=== PATIENT | female | born 1990 | race Two or more races ===

== ENCOUNTER 2018-03-07 14:28 | Emergency (ER) | payer SELFPAY ==
[~2018-03-07] VITALS: Ht 167.6 cm; Wt 102.1 kg
[2018-03-07 14:43] VITALS: BP 131/80
[2018-03-07] MEDS ORDERED: methylPREDNISolone SOD SUCC 125 MG/2 ML VL IM ONE (15:45)
[2018-03-07] MEDS ORDERED: diphenhdrAMINE HCL 25 MG CAP PO ONE (15:45)
== END 2018-03-07 16:08 | disposition home or self-care (01) ==
LOC: ER 14:28
DX: T78.40XA Allergy, unspecified, initial encounter (principal)
CPT/HCPCS: 96372; 99283; J2930

== ENCOUNTER 2020-02-11 20:22 | Emergency (ER) | payer MEDICAID ==
[~2020-02-11] VITALS: Ht 165.1 cm; Wt 99.8 kg
[2020-02-11 22:14] VITALS: BP 149/89
[2020-02-11] MEDS ORDERED: KETOROLAC TROMETH 60MG/2ML VIAL IM ONE (22:30)
== END 2020-02-11 23:00 | disposition home or self-care (01) ==
LOC: ER 20:22
DX: S05.12XA Contusion of eyeball and orbital tissues, left eye, initial encounter (principal); W10.8XXA Fall (on) (from) other stairs and steps, initial encounter; Y93.89 Activity, other specified; Y92.59 Other trade areas as the place of occurrence of the external cause; Y99.8 Other external cause status
CPT/HCPCS: 70450; 70486; 72125; 96372; 99285; J1885; 90471

== ENCOUNTER 2020-11-25 19:44 | Emergency (ER) | payer MEDICAID ==
[~2020-11-25] VITALS: Ht 167.6 cm; Wt 81.6 kg
[2020-11-25] MEDS ORDERED: ACETAMINOPHEN 325 MG TAB PO ONE (21:00)
[2020-11-25 21:15] LABS: Urine Bacteria FEW /hpf (None Seen); Urine Blood Negative /uL (Negative); Urine Mucus FEW (None Seen); Urine Specific Gravity 1.024 (1.001-1.035); Urine WBC 5 /hpf (0 - 5)
[2020-11-25] MEDS ORDERED: KETOROLAC TROMETH 60MG/2ML VIAL IM ONE (23:45)
[2020-11-25] MEDS ORDERED: cefTRIAXone SOD 1,000 MG VL IM ONE (23:45)
[2020-11-26] VITALS: BP 131/92
== END 2020-11-26 01:01 | disposition home or self-care (01) ==
LOC: ER 19:51
DX: N39.0 Urinary tract infection, site not specified (principal); M51.26 Other intervertebral disc displacement, lumbar region; M48.061 Spinal stenosis, lumbar region without neurogenic claudication; F17.210 Nicotine dependence, cigarettes, uncomplicated; Z98.890 Other specified postprocedural states
CPT/HCPCS: 72131; 81001; 81025; 96372; 99284; J0696; J1885

== ENCOUNTER 2021-04-14 05:57 | Emergency (ER) | payer MEDICAID ==
[~2021-04-14] VITALS: Ht 165.1 cm; Wt 95.3 kg
[2021-04-14 06:00] VITALS: BP 136/78
== END 2021-04-14 09:04 | disposition left against medical advice (07) ==
LOC: ER 05:57
DX: S70.361A Insect bite (nonvenomous), right thigh, initial encounter (principal); F17.210 Nicotine dependence, cigarettes, uncomplicated; W57.XXXA Bitten or stung by nonvenomous insect and other nonvenomous arthropods, initial encounter; Y93.89 Activity, other specified; Y92.89 Other specified places as the place of occurrence of the external cause; Y99.8 Other external cause status

== ENCOUNTER 2022-07-20 03:41 | Emergency (ER) | payer MEDICAID ==
[~2022-07-20] VITALS: Ht 160 cm; Wt 85.0 kg
[2022-07-20 08:44] VITALS: BP 150/92
== END 2022-07-20 08:27 | disposition left against medical advice (07) ==
LOC: ER 03:41
DX: R51.9 Headache, unspecified (principal); Z53.21 Procedure and treatment not carried out due to patient leaving prior to being seen by health care provider

== ENCOUNTER 2022-10-06 00:05 | Emergency (ER) | payer MEDICAID | END 2022-10-06 00:14 | disposition left against medical advice (07) | LOC: ER 00:05 | DX: R22.40 Localized swelling, mass and lump, unspecified lower limb (principal); Z53.21 Procedure and treatment not carried out due to patient leaving prior to being seen by health care provider ==

== ENCOUNTER 2022-12-29 23:31 | Emergency (ER) | payer MEDICAID | END 2022-12-29 23:36 | disposition left against medical advice (07) | LOC: ER 23:31 | DX: M54.9 Dorsalgia, unspecified (principal); Z53.21 Procedure and treatment not carried out due to patient leaving prior to being seen by health care provider ==

== ENCOUNTER 2022-12-31 04:23 | Emergency (ER) | payer MEDICAID | END 2022-12-31 05:19 | disposition left against medical advice (07) | LOC: ER 04:23 | DX: M54.9 Dorsalgia, unspecified (principal); Z53.21 Procedure and treatment not carried out due to patient leaving prior to being seen by health care provider ==

== ENCOUNTER → 2023-01-22 | Emergency (ER) | payer MEDICAID | END | disposition left against medical advice (07) | LOC: ER 03:38 | DX: R06.02 Shortness of breath (principal); Z53.21 Procedure and treatment not carried out due to patient leaving prior to being seen by health care provider ==

== ENCOUNTER 2023-02-02 08:25 | Emergency (ER) | payer MEDICAID ==
[~2023-02-02] VITALS: Ht 165.1 cm; Wt 95.4 kg
[2023-02-02 14:29] VITALS: BP 111/56; PULSE 66; RESP 16; TEMP 97.6; O2SAT 99
[2023-02-02] MEDS ORDERED: NITR-87 PO (15:40)
== END 2023-02-02 15:46 | disposition home or self-care (01) ==
LOC: ER 08:25
DX: N39.0 Urinary tract infection, site not specified (principal); F17.210 Nicotine dependence, cigarettes, uncomplicated

== ENCOUNTER 2023-02-06 01:06 | Emergency (ER) | payer MEDICAID ==
[~2023-02-06] VITALS: Ht 154.9 cm; Wt 85.1 kg
[~2023-02-06 01:06] MED LIST: NITR-87 PO
[2023-02-06 01:22] VITALS: BP 116/67; PULSE 77; RESP 17; TEMP 97.7; O2SAT 99
[2023-02-06] MEDS ORDERED: IBUP-1455 PO (03:25)
[2023-02-06] MEDS ORDERED: IBUPROFEN 800 MG TAB PO ONE (03:30)
== END 2023-02-06 03:35 | disposition home or self-care (01) ==
LOC: ER 01:07
DX: M25.562 Pain in left knee (principal); F17.210 Nicotine dependence, cigarettes, uncomplicated; Z98.890 Other specified postprocedural states
CPT/HCPCS: 73562

== ENCOUNTER 2023-02-19 23:13 | Emergency (ER) | payer MEDICAID ==
[~2023-02-19 23:13] MED LIST changes: +IBUP-1455 PO
== END 2023-02-20 00:33 | disposition left against medical advice (07) ==
LOC: ER 23:19
DX: M25.569 Pain in unspecified knee (principal); Z53.21 Procedure and treatment not carried out due to patient leaving prior to being seen by health care provider

== ENCOUNTER 2023-02-20 12:41 | Emergency (ER) | payer MEDICAID ==
[~2023-02-20] VITALS: Ht 162.6 cm; Wt 91.8 kg
[2023-02-20 13:00] VITALS: BP 146/78; PULSE 88; RESP 18; O2SAT 99
[2023-02-20] MEDS ORDERED: KETOROLAC TROMETH 60MG/2ML VIAL IM ONE (13:00)
[2023-02-20] MEDS ORDERED: DexAMETHasone SOD PHOS 10MG/1ML VIAL INJ IM ONE (13:00)
[2023-02-20 17:55] LABS: Urine Bacteria NONE SEEN /hpf (None Seen); Urine Blood Negative /uL (Negative); Urine Clarity Clear (Clear); Urine Color Yellow (Yellow); Urine Protein, UAD 3+ (Negative); Urine Specific Gravity 1.012 (1.001-1.035); Urine Urobilinogen Normal (Negative); Urine WBC 4 /hpf (0 - 5)
[2023-02-20 18:06] LABS: Amphetamine Screen, Urine Neg (NEGATIVE); Barbiturate Scree,Urine Neg (NEGATIVE); Benzodiazephine Screen, Urine Neg (NEGATIVE); Cannabinoid Screen, Urine Neg (NEGATIVE); Cocaine Screen, Urine Neg (NEGATIVE); Opiate Scree,Urine Neg (NEGATIVE); Phencyclidine Screen, Urine Neg (NEGATIVE)
== END 2023-02-20 17:29 | disposition home or self-care (01) ==
LOC: ER 12:41
DX: L30.8 Other specified dermatitis (principal); M25.562 Pain in left knee; F17.210 Nicotine dependence, cigarettes, uncomplicated; Z79.899 Other long term (current) drug therapy; W18.09XA Striking against other object with subsequent fall, initial encounter; Y93.01 Activity, walking, marching and hiking; Y92.89 Other specified places as the place of occurrence of the external cause; Y99.8 Other external cause status
CPT/HCPCS: 80307; 81001; 81025; 96372; 99284; J1100; J1885

== ENCOUNTER 2023-02-22 07:19 | Emergency (ER) | payer MEDICAID ==
[~2023-02-22] VITALS: Ht 165.1 cm; Wt 85.7 kg
[2023-02-22 08:10] VITALS: BP 127/58; PULSE 89; RESP 16; TEMP 96.1; O2SAT 96
[2023-02-22] MEDS ORDERED: METH4PAK PO (09:02)
[2023-02-22] MEDS ORDERED: HYDR-3682 PO ×3 (09:02→10:31)
[2023-02-22] MEDS ORDERED: IBUP-1455 PO (10:31)
== END 2023-02-22 09:02 | disposition home or self-care (01) ==
LOC: ER 07:19
DX: L29.9 Pruritus, unspecified (principal); F17.200 Nicotine dependence, unspecified, uncomplicated

== ENCOUNTER 2023-03-17 21:41 | Emergency (ER) | payer MEDICAID ==
[~2023-03-17] VITALS: Ht 165.1 cm; Wt 91.9 kg
[~2023-03-17 21:41] MED LIST changes: +HYDR-3682 PO; +METH4PAK PO
[2023-03-18 06:12] VITALS: BP 122/84; PULSE 66; RESP 16; TEMP 98
[2023-03-18 06:51] VITALS: O2SAT 98
[2023-03-18] MEDS ORDERED: TRIA0.02 TOP (06:56)
== END 2023-03-18 07:11 | disposition home or self-care (01) ==
LOC: ER 21:41
DX: T50.905A Adverse effect of unspecified drugs, medicaments and biological substances, initial encounter (principal); F17.210 Nicotine dependence, cigarettes, uncomplicated; Z79.899 Other long term (current) drug therapy; Z98.890 Other specified postprocedural states; Y92.89 Other specified places as the place of occurrence of the external cause

== ENCOUNTER 2023-05-30 00:41 | Emergency (ER) | payer MEDICAID ==
[~2023-05-30] VITALS: Ht 165.1 cm; Wt 88.5 kg
[~2023-05-30 00:41] MED LIST changes: +MECL1TAB32 PO; +TRIA0.02 TOP
[2023-05-30] MEDS ORDERED: CLIN300C70 PO (02:58)
[2023-05-30] MEDS ORDERED: IBUP1TAB5 PO (02:58)
[2023-05-30] MEDS ORDERED: CLINDAMYCIN HCL 150 MG CAP PO ONE (03:00)
[2023-05-30] MEDS ORDERED: HYDROcodone-ACET 5/325MG TAB PO ONE (03:00)
[2023-05-30 06:10] VITALS: BP 132/84; PULSE 87; RESP 16; TEMP 98.6; O2SAT 98
== END 2023-05-30 06:23 | disposition home or self-care (01) ==
LOC: ER 00:41
DX: K04.7 Periapical abscess without sinus (principal); K02.9 Dental caries, unspecified; F17.210 Nicotine dependence, cigarettes, uncomplicated; Z88.1 Allergy status to other antibiotic agents

== ENCOUNTER 2023-06-18 22:47 | Emergency (ER) | payer MEDICAID ==
[~2023-06-18] VITALS: Ht 165.1 cm; Wt 90.9 kg
[~2023-06-18 22:47] MED LIST changes: +CLIN300C70 PO; +IBUP1TAB5 PO
[2023-06-19 03:08] VITALS: BP 125/56; RESP 20; TEMP 98.4; O2SAT 100
[2023-06-19 03:25] VITALS: PULSE 75
== END 2023-06-19 01:07 | disposition left against medical advice (07) ==
LOC: ER 22:47
DX: M79.661 Pain in right lower leg (principal); F17.210 Nicotine dependence, cigarettes, uncomplicated; Z79.1 Long term (current) use of non-steroidal anti-inflammatories (NSAID); Z79.2 Long term (current) use of antibiotics; Z79.899 Other long term (current) drug therapy; Z88.1 Allergy status to other antibiotic agents

== ENCOUNTER 2023-08-10 23:25 | Emergency (ER) | payer MEDICAID ==
[~2023-08-10] VITALS: Ht 165.1 cm; Wt 91.0 kg
[2023-08-10 23:25] VITALS: BP 131/80; PULSE 84; RESP 20; O2SAT 99
[2023-08-11 00:30] LABS: Basophils # (auto) 0.1 10 ^3/uL (0-0.2); Basophils % (auto) 1.3 % (0.0-2.0); Eosinophils # (auto) 0.3 10 ^3/uL (0-0.8); Eosinophils % (auto) 4.7 % (0.0-7.0); Hematocrit 35.7 % (36.0-46.0); Hemoglobin 11.6 g/dL (12.2-16.2); Lymphocytes # (auto) 1.7 10 ^3/uL (0.4-5.4); Lymphocytes % (auto) 26.7 % (10.0-50.0); Mean Corpuscular Hemoglobin 28.8 pg (28.0-32.0); Mean Corpuscular Hgb Conc. 32.6 g/dL (32.0-36.0); Mean Corpuscular Volume 88.5 fL (80.0-100.0); Monocytes # (auto) 0.7 10 ^3/uL (0-1.3); Monocytes % (auto) 11.1 % (0.0-12.0); Neutrophils # (auto) 3.5 10 ^3/uL (1.6-8.6); Neutrophils % (auto) 56.2 % (37.0-80.0); Nucleated Red Blood Cells % 0.1 %; Red Blood Cells 4.03 10^6/uL (4.0-5.20); Red Cell Distribution Width 15.5 % (11.8-14.3); White Blood Cell 6.3 10^3/uL (4.4-10.8)
[2023-08-11 01:16] LABS: Chloride 109 mmol/L (98-107); Potassium 3.7 mmol/L (3.5-5.1); Sodium 140 mmol/L (136-145)
[2023-08-11 01:17] LABS: Anion Gap 2 (5-15); Carbon Dioxide 29 mmol/L (20-30)
[2023-08-11 01:18] LABS: Calcium 9.1 mg/dL (8.7-10.4)
[2023-08-11 01:22] LABS: BUN/Creatinine Ratio 15.5 (10.0-20.0); Blood Urea Nitrogen 11 mg/dL (9-23); Glucose 78 mg/dL (74-106)
== END 2023-08-11 02:24 | disposition home or self-care (01) ==
LOC: ER 23:25
DX: R10.13 Epigastric pain (principal); R10.2 Pelvic and perineal pain; F17.210 Nicotine dependence, cigarettes, uncomplicated; Z88.0 Allergy status to penicillin; Z88.1 Allergy status to other antibiotic agents
CPT/HCPCS: 36415; 80048; 84702; 85025

== ENCOUNTER 2023-08-17 21:40 | Emergency (ER) | payer MEDICAID ==
[~2023-08-17] VITALS: Ht 165.1 cm; Wt 90.0 kg
[2023-08-17 21:40] VITALS: BP 121/86; PULSE 91; RESP 18; O2SAT 98
[2023-08-17] MEDS ORDERED: ACETAMINOPHEN 650 mg PER 20.3 mL UD PO ONE (22:30)
[2023-08-17] MEDS ORDERED: diphenhdrAMINE HCL 50 MG/1 ML VL IM ONE (22:30)
[2023-08-17] MEDS ORDERED: SUMAtriptan SUCCINATE 6 MG/0.5 ML VL SC ONE (22:30)
[2023-08-17] MEDS ORDERED: KETOROLAC TROMETH 60MG/2ML VIAL IM ONE (22:30)
== END 2023-08-18 03:01 | disposition home or self-care (01) ==
LOC: ER 21:40
DX: E16.2 Hypoglycemia, unspecified (principal); R42 Dizziness and giddiness; F17.210 Nicotine dependence, cigarettes, uncomplicated; Z88.0 Allergy status to penicillin; Z88.1 Allergy status to other antibiotic agents
CPT/HCPCS: 82962

== ENCOUNTER 2023-08-31 19:48 | Emergency (ER) | payer MEDICAID ==
[~2023-08-31] VITALS: Ht 165.1 cm; Wt 91.0 kg
[2023-08-31 19:48] VITALS: BP 142/88; PULSE 82; RESP 18; O2SAT 96
[~2023-08-31 19:48] MED LIST changes: +CLIN1CAP70 PO; -CLIN300C70 PO; +MECL-90 PO; -MECL1TAB32 PO
[2023-08-31] MEDS ORDERED: ACET500T58 PO (21:41)
[2023-09-02] MEDS ORDERED: NABU-72 PO (15:29)
[2023-09-06] MEDS ORDERED: NAP500T PO (01:23)
== END 2023-09-01 00:07 | disposition home or self-care (01) ==
LOC: ER 19:48
DX: R51.9 Headache, unspecified (principal); R10.2 Pelvic and perineal pain; E23.7 Disorder of pituitary gland, unspecified; F17.210 Nicotine dependence, cigarettes, uncomplicated; Z32.02 Encounter for pregnancy test, result negative
CPT/HCPCS: 36415; 70450; 81025; 84702

== ENCOUNTER 2023-09-02 06:13 | Emergency (ER) | payer MEDICAID ==
[~2023-09-02] VITALS: Ht 165.1 cm; Wt 90.0 kg
[~2023-09-02 06:13] MED LIST changes: +ACET500T58 PO
[2023-09-02] MEDS: ACETAMINOPHEN 500 MG TAB PO ONE (08:04)
[2023-09-02] MEDS ORDERED: NABU-72 PO (15:29)
[2023-09-02 15:38] VITALS: BP 124/78; PULSE 82; RESP 16; TEMP 98.5; O2SAT 100
[2023-09-06] MEDS ORDERED: NAP500T PO (01:23)
== END 2023-09-02 16:08 | disposition home or self-care (01) ==
LOC: ER 06:13
DX: R51.9 Headache, unspecified (principal); E23.7 Disorder of pituitary gland, unspecified; F17.210 Nicotine dependence, cigarettes, uncomplicated; Z59.00 Homelessness unspecified; Z88.0 Allergy status to penicillin; Z88.1 Allergy status to other antibiotic agents

== ENCOUNTER 2023-09-08 01:10 | Emergency (ER) | payer MEDICAID ==
[~2023-09-08] VITALS: Ht 165.1 cm; Wt 90.0 kg
[~2023-09-08 01:10] MED LIST changes: +NABU-72 PO; +NAP500T PO
[2023-09-08 01:35] VITALS: BP 116/78; PULSE 90; RESP 18; O2SAT 100
== END 2023-09-08 02:51 | disposition left against medical advice (07) ==
LOC: EDBD 01:10 → ER 01:10
DX: R51.9 Headache, unspecified (principal); Z53.21 Procedure and treatment not carried out due to patient leaving prior to being seen by health care provider

== ENCOUNTER 2023-09-22 15:12 | Emergency (ER) | payer MEDICAID ==
[~2023-09-22] VITALS: Ht 162.6 cm; Wt 92.5 kg
[2023-09-22 21:48] LABS: Basophils # (auto) 0.1 10 ^3/uL (0-0.2); Basophils % (auto) 1.3 % (0.0-2.0); Eosinophils # (auto) 0.2 10 ^3/uL (0-0.8); Eosinophils % (auto) 2.4 % (0.0-7.0); Hematocrit 35.9 % (36.0-46.0); Hemoglobin 11.7 g/dL (12.2-16.2); Lymphocytes # (auto) 2.5 10 ^3/uL (0.4-5.4); Lymphocytes % (auto) 31.6 % (10.0-50.0); Mean Corpuscular Hemoglobin 27.9 pg (28.0-32.0); Mean Corpuscular Hgb Conc. 32.6 g/dL (32.0-36.0); Mean Corpuscular Volume 85.6 fL (80.0-100.0); Monocytes # (auto) 0.7 10 ^3/uL (0-1.3); Monocytes % (auto) 9.5 % (0.0-12.0); Neutrophils # (auto) 4.3 10 ^3/uL (1.6-8.6); Neutrophils % (auto) 55.2 % (37.0-80.0); Nucleated Red Blood Cells % 0.1 %; White Blood Cell 7.8 10^3/uL (4.4-10.8)
[2023-09-22 22:52] LABS: COVID19 ANTIGEN SOFIA FIA NEGATIVE (NEGATIVE)
[2023-09-22 23:11] LABS: Alanine Aminotransferase 32 U/L (7-40); Albumin 4.1 g/dL (3.2-4.8); Alkaline Phosphatase 78 U/L (46-116); Anion Gap 7 (5-15); Aspartate Aminotransferase 15 U/L (13-40); BUN/Creatinine Ratio 12.9 (10.0-20.0); Blood Urea Nitrogen 9 mg/dL (9-23); Carbon Dioxide 24 mmol/L (20-30); Chloride 110 mmol/L (98-107); Glucose 90 mg/dL (74-106); Potassium 4.4 mmol/L (3.5-5.1); Sodium 141 mmol/L (136-145)
[2023-09-22 23:12] LABS: Bilirubin, Total 0.3 mg/dL (0.2-1.0); Total Protein 6.5 g/dL (5.7-8.2)
[2023-09-23] MEDS ORDERED: MECL1TAB42 PO (00:18)
[2023-09-23] MEDS ORDERED: BENZ200C64 PO (00:18)
[2023-09-23] MEDS ORDERED: ZOFR4T PO (00:18)
[2023-09-23] MEDS ORDERED: FLUT1SPR9 (00:18)
[2023-09-23] MEDS ORDERED: AUG875T PO (00:18)
[2023-09-23 00:55] VITALS: BP 110/87; PULSE 99; RESP 19; TEMP 98.3; O2SAT 97
[2023-09-23] MEDS: MECLIZINE HCL 25 MG TAB PO ONE (01:00)
[2023-09-23] MEDS: HYDROcodone-ACET 5/325MG TAB PO ONE (01:00)
[2023-09-23] MEDS: ONDANSETRON ODT 4 MG TAB PO ONE (01:00)
== END 2023-09-23 00:57 | disposition home or self-care (01) ==
LOC: ER 15:12
DX: J01.90 Acute sinusitis, unspecified (principal); R10.2 Pelvic and perineal pain; R42 Dizziness and giddiness; R51.9 Headache, unspecified; E23.7 Disorder of pituitary gland, unspecified; F17.210 Nicotine dependence, cigarettes, uncomplicated; Z20.822 Contact with and (suspected) exposure to COVID-19
CPT/HCPCS: 36415; 70450; 80053; 84484; 84702; 85025; 87426; 93005; 99284; J8597

== ENCOUNTER 2023-09-24 06:11 | Emergency (ER) | payer MEDICAID ==
[~2023-09-24] VITALS: Ht 165.1 cm; Wt 92.2 kg
[~2023-09-24 06:11] MED LIST changes: +AUG875T PO; +BENZ200C64 PO; +FLUT1SPR9; +MECL1TAB42 PO; +ZOFR4T PO
[2023-09-24 09:52] VITALS: BP 125/81; PULSE 91; RESP 18; TEMP 98.4; O2SAT 99
[2023-09-24 10:37] LABS: Urine Bacteria None Seen /hpf (None Seen)
[2023-09-24 11:02] LABS: Urine Blood Negative /uL (Negative); Urine Clarity Ex.Turbid (Clear); Urine Color Light-Orange (Yellow); Urine Mucus FEW (None Seen); Urine Protein, UAD TRACE (Negative); Urine Specific Gravity 1.022 (1.001-1.035); Urine Urobilinogen Normal (Negative); Urine WBC 20 /hpf (0 - 5); Urine WBC Clumps PRESENT /hpf (None Seen)
== END 2023-09-24 15:13 | disposition home or self-care (01) ==
LOC: ER 06:11
DX: F41.9 Anxiety disorder, unspecified (principal); F17.210 Nicotine dependence, cigarettes, uncomplicated; Z98.890 Other specified postprocedural states
CPT/HCPCS: 36415; 81001; 84484; 93005

== ENCOUNTER 2023-09-30 05:07 | Emergency (ER) | payer MEDICAID ==
[~2023-09-30] VITALS: Ht 165.1 cm; Wt 86.5 kg
[2023-09-30] MEDS ORDERED: CALA1SUS2 EX (07:56)
[2023-09-30] MEDS ORDERED: HYDR-5028 PO (07:56)
[2023-09-30 08:02] VITALS: BP 123/80; PULSE 60; RESP 16; TEMP 98.4; O2SAT 97
== END 2023-09-30 08:13 | disposition home or self-care (01) ==
LOC: ER 05:07
DX: T78.40XA Allergy, unspecified, initial encounter (principal); F17.210 Nicotine dependence, cigarettes, uncomplicated; Z88.0 Allergy status to penicillin; Z88.1 Allergy status to other antibiotic agents; X58.XXXA Exposure to other specified factors, initial encounter

== ENCOUNTER 2023-10-15 21:12 | Emergency (ER) | payer MEDICAID ==
[~2023-10-15] VITALS: Ht 165.1 cm; Wt 100.0 kg
[~2023-10-15 21:12] MED LIST changes: +CALA1SUS2 EX; +HYDR-5028 PO
[2023-10-15 21:27] VITALS: BP 111/70; PULSE 78; RESP 18; O2SAT 100
== END 2023-10-16 01:53 | disposition left against medical advice (07) ==
LOC: ER 21:12
DX: O26.899 Other specified pregnancy related conditions, unspecified trimester (principal); Z3A.00 Weeks of gestation of pregnancy not specified; Z53.21 Procedure and treatment not carried out due to patient leaving prior to being seen by health care provider

== ENCOUNTER 2023-10-26 00:11 | Emergency (ER) | payer MEDICAID | END 2023-10-26 00:29 | disposition left against medical advice (07) | LOC: ER 00:11 | DX: G43.909 Migraine, unspecified, not intractable, without status migrainosus (principal); Z53.21 Procedure and treatment not carried out due to patient leaving prior to being seen by health care provider ==

== ENCOUNTER 2023-10-28 02:00 | Emergency (ER) | payer MEDICAID ==
[~2023-10-28] VITALS: Ht 165.1 cm; Wt 90.7 kg
[2023-10-28 02:21] VITALS: BP 112/68; PULSE 87; RESP 18; O2SAT 98
== END 2023-10-28 04:56 | disposition home or self-care (01) ==
LOC: ER 02:00
DX: S46.912A Strain of unspecified muscle, fascia and tendon at shoulder and upper arm level, left arm, initial encounter (principal); F17.210 Nicotine dependence, cigarettes, uncomplicated; Z88.1 Allergy status to other antibiotic agents; Z88.0 Allergy status to penicillin; Z79.899 Other long term (current) drug therapy; X58.XXXA Exposure to other specified factors, initial encounter; Y93.89 Activity, other specified; Y92.238 Other place in hospital as the place of occurrence of the external cause; Y99.8 Other external cause status

== ENCOUNTER 2024-01-22 00:17 | Emergency (ER) | payer MEDICAID ==
[~2024-01-22] VITALS: Ht 165.1 cm; Wt 93.0 kg
[2024-01-22 01:25] VITALS: BP_SYST 80; PULSE 61; RESP 18; TEMP 97; O2SAT 100
== END 2024-01-22 03:36 | disposition home or self-care (01) ==
LOC: ER 00:17
DX: T78.49XA Other allergy, initial encounter (principal); Z79.899 Other long term (current) drug therapy; Z98.890 Other specified postprocedural states; Z88.0 Allergy status to penicillin; X58.XXXA Exposure to other specified factors, initial encounter
CPT/HCPCS: 82962

== ENCOUNTER 2024-01-27 23:04 | Emergency (ER) | payer MEDICAID ==
[2024-01-28] MEDS ORDERED: CLIN1CAP70 PO (01:58)
[2024-01-28] MEDS ORDERED: IBUP-1456 PO (01:58)
== END 2024-01-28 00:03 | disposition left against medical advice (07) ==
LOC: ER 23:04
DX: M54.9 Dorsalgia, unspecified (principal); Z53.21 Procedure and treatment not carried out due to patient leaving prior to being seen by health care provider

== ENCOUNTER 2024-01-28 01:43 | Emergency (ER) | payer MEDICAID ==
[~2024-01-28] VITALS: Ht 165.1 cm; Wt 90.0 kg
[2024-01-28 01:53] VITALS: BP 123/86; PULSE 92; RESP 22; O2SAT 99
[2024-01-28] MEDS ORDERED: IBUP-1456 PO (01:58)
[2024-01-28] MEDS ORDERED: CLIN1CAP70 PO (01:58)
[2024-01-28] MEDS ORDERED: cefTRIAXone SOD 1,000 MG VL IM ONE (02:00)
[2024-01-28] MEDS ORDERED: KETOROLAC TROMETH 60MG/2ML VIAL IM ONE (02:00)
[2024-01-28] MEDS ORDERED: TETANUS-DIPTH-ACEL PERTUSSIS 0.5ML SYR Tdap IM ONE (02:15)
== END 2024-01-28 01:59 | disposition home or self-care (01) ==
LOC: ER 01:43
DX: S30.861A Insect bite (nonvenomous) of abdominal wall, initial encounter (principal); S39.012A Strain of muscle, fascia and tendon of lower back, initial encounter; F17.210 Nicotine dependence, cigarettes, uncomplicated; Z98.890 Other specified postprocedural states; Z88.0 Allergy status to penicillin; Z88.1 Allergy status to other antibiotic agents; Z79.899 Other long term (current) drug therapy; W57.XXXA Bitten or stung by nonvenomous insect and other nonvenomous arthropods, initial encounter; Y93.89 Activity, other specified; Y92.89 Other specified places as the place of occurrence of the external cause; Y99.8 Other external cause status

== ENCOUNTER 2024-01-28 19:10 | Inpatient (IN) | payer MEDICAID ==
[~2024-01-28] VITALS: Ht 165.1 cm; Wt 89.4 kg
[2024-01-28] MEDS: SODIUM CHLORIDE 0.9% 1,000 ML IV SCH (01:17)
[2024-01-28] MEDS: VANCOMYCIN 1GM/200ML 200 ML IV SCH (01:18)
[~2024-01-28 19:10] MED LIST changes: +IBUP-1456 PO
[2024-01-28 20:23] LABS: Basophils # (auto) 0.1 10 ^3/uL (0-0.2); Basophils % (auto) 0.5 % (0.0-2.0); Eosinophils # (auto) 0.1 10 ^3/uL (0-0.8); Eosinophils % (auto) 1.2 % (0.0-7.0); Hematocrit 36.9 % (36.0-46.0); Lymphocytes # (auto) 1.2 10 ^3/uL (0.4-5.4); Lymphocytes % (auto) 11.3 % (10.0-50.0); Mean Corpuscular Hemoglobin 27.8 pg (28.0-32.0); Mean Corpuscular Hgb Conc. 32.6 g/dL (32.0-36.0); Mean Corpuscular Volume 85.4 fL (80.0-100.0); Monocytes # (auto) 1.1 10 ^3/uL (0-1.3); Neutrophils # (auto) 8.2 10 ^3/uL (1.6-8.6); Nucleated Red Blood Cells % 0.1 %; Platelet Count (auto) 312 10^3/uL (140-450); Red Blood Cells 4.32 10^6/uL (4.0-5.20); Red Cell Distribution Width 15.3 % (11.8-14.3); White Blood Cell 10.6 10^3/uL (4.4-10.8)
[2024-01-28 20:41] LABS: Alanine Aminotransferase 12 U/L (7-40); Albumin 4.2 g/dL (3.2-4.8); Alkaline Phosphatase 89 U/L (46-116); Anion Gap 5 (5-15); Aspartate Aminotransferase 9 U/L (13-40); Bilirubin, Total 0.3 mg/dL (0.2-1.0); Blood Urea Nitrogen 15 mg/dL (9-23); Calcium 9.1 mg/dL (8.7-10.4); Carbon Dioxide 26 mmol/L (20-30); Chloride 105 mmol/L (98-107); Glucose 95 mg/dL (74-106); Potassium 3.9 mmol/L (3.5-5.1); Sodium 136 mmol/L (136-145); Total Protein 7.1 g/dL (5.7-8.2)
[2024-01-28] MEDS ORDERED: VANCOMYCIN PER PHARMACY 0 MG IV SCH ×2 (21:45→23:45)
[2024-01-28 22:32] LABS: CRP High Sensitivity 10.35 mg/dL (<1.0)
[2024-01-28 22:43] LABS: Erythrocyte Sedimentation Rate 25 mm/hr (0-20)
[2024-01-28] MEDS ORDERED: ONDANSETRON HCL 4 MG/2 ML VIAL IV PRN (23:45)
[2024-01-28] MEDS ORDERED: HYDROcodone-ACET 5/325MG TAB PO PRN (23:45)
[2024-01-28] MEDS ORDERED: DOCUSATE SOD 100 MG CAP PO PRN (23:45)
[2024-01-28] MEDS ORDERED: NITROGLYCERIN 0.4 MG SL TAB SL PRN (23:45)
[2024-01-28] MEDS ORDERED: MECLIZINE HCL 25 MG TAB PO PRN (23:45)
[2024-01-28] MEDS ORDERED: MORPHINE SULFATE INJ 2 MG/ml SYRG IV PRN (23:45)
[2024-01-28] MEDS ORDERED: ACETAMINOPHEN 325 MG TAB PO PRN (23:45)
[2024-01-29 00:25] VITALS: PULSE 79; RESP 16; O2SAT 100
[2024-01-29 03:09] LABS: Urine Bacteria None Seen /hpf (None Seen)
[2024-01-29 03:22] LABS: Urine Blood Negative /uL (Negative); Urine Clarity Clear (Clear); Urine Color Light-Yellow (Yellow); Urine Protein, UAD Negative (Negative); Urine Specific Gravity 1.017 (1.001-1.035); Urine Urobilinogen Normal (Negative); Urine WBC 1 /hpf (0 - 5); Urine pH 6.5 (5.0-9.0)
[2024-01-29 03:23] VITALS: BP 107/79; PULSE 93; RESP 18; TEMP 98.8; O2SAT 100
[2024-01-29 03:29] LABS: Amphetamine Screen, Urine Pos (NEGATIVE); Barbiturate Scree,Urine Neg (NEGATIVE); Benzodiazephine Screen, Urine Neg (NEGATIVE); Cannabinoid Screen, Urine Neg (NEGATIVE); Cocaine Screen, Urine Neg (NEGATIVE); Opiate Scree,Urine Neg (NEGATIVE); Phencyclidine Screen, Urine Neg (NEGATIVE)
[2024-01-29 08:00] VITALS: PULSE 85
[2024-01-29 08:50] VITALS: BP 112/65; PULSE 75; RESP 16; O2SAT 100
[2024-01-29 09:36] LABS: Basophils # (auto) 0.1 10 ^3/uL (0-0.2); Basophils % (auto) 0.5 % (0.0-2.0); Eosinophils # (auto) 0.1 10 ^3/uL (0-0.8); Eosinophils % (auto) 0.9 % (0.0-7.0); Hematocrit 36.2 % (36.0-46.0); Hemoglobin 11.9 g/dL (12.2-16.2); Lymphocytes # (auto) 1.3 10 ^3/uL (0.4-5.4); Lymphocytes % (auto) 9.7 % (10.0-50.0); Mean Corpuscular Hgb Conc. 32.8 g/dL (32.0-36.0); Mean Corpuscular Volume 85.5 fL (80.0-100.0); Monocytes # (auto) 1.3 10 ^3/uL (0-1.3); Monocytes % (auto) 9.4 % (0.0-12.0); Neutrophils # (auto) 10.6 10 ^3/uL (1.6-8.6); Neutrophils % (auto) 79.5 % (37.0-80.0); Platelet Count (auto) 299 10^3/uL (140-450); Red Blood Cells 4.24 10^6/uL (4.0-5.20); Red Cell Distribution Width 15.4 % (11.8-14.3); White Blood Cell 13.3 10^3/uL (4.4-10.8)
[2024-01-29 10:08] LABS: Albumin 3.9 g/dL (3.2-4.8); Alkaline Phosphatase 80 U/L (46-116); Anion Gap 4 (5-15); Aspartate Aminotransferase < 8 U/L (13-40); BUN/Creatinine Ratio 15.4 (10.0-20.0); Bilirubin, Total 0.4 mg/dL (0.2-1.0); Blood Urea Nitrogen 8 mg/dL (9-23); Carbon Dioxide 22 mmol/L (20-30); Chloride 110 mmol/L (98-107); Glucose 96 mg/dL (74-106); Potassium 3.9 mmol/L (3.5-5.1); Sodium 136 mmol/L (136-145); Total Protein 6.6 g/dL (5.7-8.2)
[2024-01-29 10:15] LABS: Alanine Aminotransferase 9 U/L (7-40)
[2024-01-29 10:24] LABS: Free T3 2.38 pg/mL (2.3-4.2)
[2024-01-29 10:25] LABS: Free T4 (Free Thyroxine) 1.04 ng/dL (0.89-1.76)
[2024-01-29] MEDS: VANCOMYCIN 1GM/200ML 200 ML IV SCH (12:00)
[2024-01-29 13:00] VITALS: BP 125/72; PULSE 82; RESP 16; TEMP 98.9; O2SAT 98
[2024-01-29] MEDS: CEFEPIME 1GM/ 50ML 50 ML IV SCH (22:05)
[2024-01-30 00:48] VITALS: TEMP 100
[2024-01-30 10:14] LABS: Basophils # (auto) 0 10 ^3/uL (0-0.2); Basophils % (auto) 0.3 % (0.0-2.0); Eosinophils # (auto) 0.1 10 ^3/uL (0-0.8); Hematocrit 39.4 % (36.0-46.0); Hemoglobin 13.3 g/dL (12.2-16.2); Lymphocytes # (auto) 1.1 10 ^3/uL (0.4-5.4); Mean Corpuscular Hemoglobin 28.6 pg (28.0-32.0); Mean Corpuscular Hgb Conc. 33.7 g/dL (32.0-36.0); Mean Corpuscular Volume 84.9 fL (80.0-100.0); Monocytes # (auto) 1.1 10 ^3/uL (0-1.3); Monocytes % (auto) 7.8 % (0.0-12.0); Neutrophils # (auto) 11.1 10 ^3/uL (1.6-8.6); Neutrophils % (auto) 82.9 % (37.0-80.0); Platelet Count (auto) 344 10^3/uL (140-450); Red Blood Cells 4.64 10^6/uL (4.0-5.20); Red Cell Distribution Width 15.7 % (11.8-14.3); White Blood Cell 13.4 10^3/uL (4.4-10.8)
[2024-01-30 10:15] LABS: Calcium 9.8 mg/dL (8.7-10.4)
[2024-01-30 10:20] LABS: BUN/Creatinine Ratio 12.3 (10.0-20.0)
[2024-01-30 10:22] LABS: Albumin 4.2 g/dL (3.2-4.8); Phosphorus 2.5 mg/dL (2.4-5.1)
== END 2024-01-30 15:35 | disposition left against medical advice (07) | DRG 383 ==
LOC: ER 19:10 → TELE 23:42 → TELE-EAST 01-29 03:20 → EAST 01-29 23:43
PROVIDERS: ADMIT Internal Medicine; ATTEND Internal Medicine
DX: L03.311 Cellulitis of abdominal wall (principal); F17.210 Nicotine dependence, cigarettes, uncomplicated; Z53.29 Procedure and treatment not carried out because of patient's decision for other reasons; L02.211 Cutaneous abscess of abdominal wall; Z88.0 Allergy status to penicillin; Z98.891 History of uterine scar from previous surgery; Z79.899 Other long term (current) drug therapy
CPT/HCPCS: 36415; 70450; 71045; 80053; 80069; 80307; 81001; 82550; 82607; 82962; 83605; 83735; 84439; 84443; 84481; 84702; 85025; 85652; 86141; 87077; 87186; 87205; 93005; 93886; 96360; G0378

== ENCOUNTER 2024-03-08 22:37 | Emergency (ER) | payer MEDICAID ==
[2024-03-09] MEDS ORDERED: MELO7.5T7 PO (11:03)
[2024-03-09] MEDS ORDERED: LIDO5DIS21 TOP (11:03)
== END 2024-03-09 00:01 | disposition left against medical advice (07) ==
LOC: ER 22:37
DX: Z04.3 Encounter for examination and observation following other accident (principal); Z53.21 Procedure and treatment not carried out due to patient leaving prior to being seen by health care provider; V89.2XXA Person injured in unspecified motor-vehicle accident, traffic, initial encounter; Y93.89 Activity, other specified; Y92.89 Other specified places as the place of occurrence of the external cause; Y99.8 Other external cause status

== ENCOUNTER 2024-03-09 09:37 | Emergency (ER) | payer MEDICAID ==
[~2024-03-09] VITALS: Ht 165.1 cm; Wt 87.0 kg
[2024-03-09 10:37] VITALS: BP 117/83; PULSE 68; RESP 18; TEMP 97.5; O2SAT 100
[2024-03-09] MEDS ORDERED: LIDO5DIS21 TOP (11:03)
[2024-03-09] MEDS ORDERED: MELO7.5T7 PO (11:03)
== END 2024-03-09 11:03 | disposition home or self-care (01) ==
LOC: ER 09:37
DX: S70.01XA Contusion of right hip, initial encounter (principal); M16.11 Unilateral primary osteoarthritis, right hip; F17.210 Nicotine dependence, cigarettes, uncomplicated; Z98.890 Other specified postprocedural states; Z88.0 Allergy status to penicillin; Z88.1 Allergy status to other antibiotic agents; Z79.899 Other long term (current) drug therapy; V09.9XXA Pedestrian injured in unspecified transport accident, initial encounter; Y93.89 Activity, other specified; Y92.89 Other specified places as the place of occurrence of the external cause; Y99.8 Other external cause status
CPT/HCPCS: 73502

== ENCOUNTER 2024-06-27 01:08 | Emergency (ER) | payer MEDICAID ==
[~2024-06-27 01:08] MED LIST changes: +LIDO5DIS21 TOP; +MELO7.5T7 PO
== END 2024-06-27 02:00 | disposition left against medical advice (07) ==
LOC: ER 01:08
DX: R68.89 Other general symptoms and signs (principal); Z53.21 Procedure and treatment not carried out due to patient leaving prior to being seen by health care provider

== ENCOUNTER 2024-09-16 22:23 | Emergency (ER) | payer MEDICAID ==
[~2024-09-16] VITALS: Ht 165.1 cm; Wt 90.9 kg
--- NOTE | 2024-09-16 23:22 | DVH ---
INDICATION: Patient states she is 32 weeks TECHNIQUE: Multiple real-time grayscale transabdominal sonographic images along with color and duplex Doppler of the uterus and ovaries were obtained. COMPARISON: None FINDINGS: Uterus is anteverted measuring 8.34 x 4.84 5.8 cm. Endometrial stripe measures 12 mm in thickness whi ch is still within normal limits for age bladder is unremarkable there is no free fluid. IMPRESSION: 1. Unremarkable study. No evidence for
[2024-09-16] MEDS ORDERED: IBUP-1455 PO (23:33)
--- NOTE | 2024-09-16 23:34 | ED.PDOC ---
General HPI Comments This patient is a morbidly obese 34-year-old female who arrives the ED today with complaints of low back pain and a request for evaluation of an approximate 32 week . Patient states she does not have an liquefied petroleum gasfitter and has never hand a ultrasound to evaluate health. Patient denies any vaginal discharge or vaginal bleeding. Patient was very agitated at time of evaluation and appears to have some psychosis. Patient denies any fever nausea or vomiting. Vital signs were stable on arrival. Chief Complaint: Back Pain Time Seen by MD: 22:26 Primary Care Provider: [facility] Reviewed notes: Nurses Notes Allergies: Coded Allergies: Amoxicillin (Verified Allergy, Unknown, 05/16/23) Penicillins (Verified Allergy, Unknown, 06/20/23) Home Meds Active Scripts Lidocaine (LIDODERM 5% TOPICAL PATCH) 1 Patch Ph, 1 PATCH TOP DAILY for 30 Days, #30 PATCH 0 Refills Prov:JUDITH FUENTES NP 03/09/24 Meloxicam (Meloxicam) 7.5 Mg Tab, 1 TAB PO DAILYP PRN, #3 TAB 0 Refills Prov:JUDITH FUENTES NP 03/09/24 Ibuprofen (Ibuprofen) 800 Mg Tab, 1 TAB PO TID PRN, #30 TAB 0 Refills Prov:ADAMS GOMEZ 01/28/24 Clindamycin Hcl (Clindamycin Hcl) 300 Mg Cap, 1 CAP PO TID for 7 Days, #21 CAP 0 Refills Prov:ADAMS GOMEZ 01/28/24 Hydroxyzine HCl (Hydroxyzine Hydrochloride) 10 Mg Tab, 10 MG PO TIDP PRN for 10 Days, #30 TAB 0 Refills Prov:JUDITH FUENTES NP 09/30/23 Methylprednisolone (Medrol Dosepak) 4 Mg Dayne, 4 MG PO UD for 5 Days, #21 TAB 0 Refills UAD Prov:JUDITH FUENTES NP 09/30/23 Calamine-Zinc Oxide (Calamine 8-8 %) 1 Katie Katie, 1 APPLIC EX QIDP for 10 Days, #1 BOTTLE 0 Refills Prov:JUDITH FUENTES NP 09/30/23 Meclizine HCl (Meclizine 25) 25 Mg Tab, 1 TAB PO Q8HPRN PRN, #20 TAB as needed for dizziness Prov:DINESH SPRAGUE SCENIC ARTIST 09/23/23 Ondansetron Odt 4MG Tab (ZOFRAN PO) 4 Mg Tb, 1 TAB PO Q8HPRN PRN, #10 TAB as needed for nausea vomitingODT TAB-DISSOLVE IN MOUTH, THEN SWALLOW Prov:DINESH SPRAGUE SCENIC ARTIST 09/23/23 Ibuprofen Micronized (Ibuprofen) 600 Mg Tab, 1 TAB PO Q6HPRN PRN, #20 TAB as needed for cough Prov:DINESH SPRAGUE Q SCENIC ARTIST 09/23/23 Benzonatate (Benzonatate) 200 Mg Cap, 1 CAP PO TID, #30 CAP as needed for cough Prov:DINESH SPRAGUE Q SCENIC ARTIST 09/23/23 Fluticasone Propionate (Nasal) (Flonase Allergy Relief Ch) 50 Mcg/Act Spr, 1 MCG NA BID, #1 SPRAY Prov:DINESH SPRAGUE SCENIC ARTIST 09/23/23 Amoxicillin & Pot Clavulanate (AUGMENTIN TABLET) 875 Mg Tb, 1 TAB PO BID for 10 Days, #20 TAB Prov:DINESH SPRAGEU SCENIC ARTIST 09/23/23 Naproxen (NAPROSYN TABLET) 500 Mg Tb, 1 TAB PO BID, #60 TAB 1 Refill Prov:LEX THAKUR PAPER COATING MACHINE OPERATOR 09/06/23 Nabumetone (Nabumetone) 500 Mg Tab, 1 TAB PO BID PRN, #20 TAB Prov:LIUDMILA CARRIZALES PAPER COATING MACHINE OPERATOR 09/02/23 Acetaminophen (Acetaminophen) 500 Mg Tab, 500 MG PO Q4HPRN, #30 TAB 0 Refills Prov:ADAMS GOMEZ 08/31/23 Ibuprofen Micronized (Ibuprofen) 600 Mg Tab, 1 TAB PO Q6HPRN PRN, #20 TAB As needed for pain Prov:DINESH SPRAGUE SCENIC ARTIST 05/30/23 Clindamycin Hcl (Clindamycin Hcl) 300 Mg Cap, 1 CAP PO QID for 10 Days, #40 CAP Prov:DINESH SPRAGUE Q SCENIC ARTIST 05/30/23 Meclizine Hcl (Meclizine Hcl) 25 Mg Tab, 25 MG PO Q6HP PRN, #20 TAB Prov:JOAQUIM LUU MD 05/16/23 Triamcinolone Acetonide (Triamcinolone Acetonide) 0.025 % Cre, 1 APPLIC TOP BID, #60 GRAMS Prov:EUNICE NAIDU 03/18/23 Hydroxyzine Hcl (Hydroxyzine Hcl) 25 Mg Tab, 1 TAB PO BID for 7 Days, #14 TAB 0 Refills Prov:JUDITH FUENTES KONSTANTIN 02/22/23 Ibuprofen Micronized (Ibuprofen) 800 Mg Tab, 800 MG PO Q6HP PRN, #30 TAB 0 Refills Prov:JUDITH FUENTES KONSTANTIN 02/22/23 Methylprednisolone (Medrol Dosepak) 4 Mg Dayne, 4 MG PO UD, #21 TAB 0 Refills UAD Prov:JUDITH FUENTES KONSTANTIN 02/22/23 Nitrofurantoin Monohydrate Mac (Macrobid) 100 Mg Cap, 100 MG PO BID for 7 Days, #14 CAP 0 Refills Prov:JUDITH FUENTES KONSTANTIN 02/02/23 Information Source: Patient Mode of Arrival: Ambulatory Severity: Moderate Timing: Days Duration: Since onset Prehospital treatment: None Onset: Spontaneous Symptoms: None History of: None Location: None Past Medical History PAST MEDICAL HISTORY: Denies Past Medical History (Other): Patient states she is approximately 32 weeks . Surgical History: TIMBER REPAIRER History: No Pertinent TIMBER REPAIRER History Family History Family History: Reviewed,noncontributory to illness, Unknown Social History Smoker: Cigarettes, Less Than 1 Pack/Day Alcohol: Occasionally Drugs: Denies Drug Use Lives In: Home Constitutional: denies: chills, diaphoresis, fatigue, fever, malaise, sweats, weakness, others EENTM: denies: blurred vision, double vision, ear bleeding, ear discharge, ear drainage, ear pain, ear ringing, eye pain, eye redness, hearing loss, mouth pain, mouth swelling, nasal discharge, nose bleeding, nose congestion, nose pain, photophobia, tearing, throat pain, throat swelling, voice changes, others Respiratory: denies: cough, hemoptysis, orthopnea, SOB at rest, shortness of breath, SOB with excertion, stridor, wheezing, others Cardiovascular: denies: chest pain, dizzy spells, diaphoresis, Dyspnea on exertion, edema, irregular heart beat, left arm pain, lightheadedness, palpitations, PND, syncope, others Gastrointestinal: denies: abdomen distended, abdominal pain, blood streaked bowels, constipated, diarrhea, dysphagia, difficulty swallowing, hematemesis, melena, nausea, poor appetite, poor fluid intake, rectal bleeding, rectal pain, vomiting, others Genitourinary: denies: abnormal vagina bleeding, burning, dyspareunia, dysuria, flank pain, frequency, hematuria, incontinence, pain, , vagina discharge, urgency, others Neurological: denies: dizziness, fainting, headache, left sided numbness, left sided weakness, numbness, paresthesia, pre-existing deficit, right sided numbness, right sided weakness, seizure, speech problems, tingling, tremors, weakness, others Musculoskeletal: reports: back pain; denies: gout, joint pain, joint swelling, muscle pain, muscle stiffness, neck pain, others Integumetry: denies: bruises, change in color, change in hair/nails, dryness, laceration, lesions, lumps, rash, wounds, others Allergic/Immunocompromised: denies: Difficulty Healing, Frequent Infections, Hives, Itching, others Hematologic/Lymphatic: denies: anemia, blood clots, easy bleeding, easy bruising, swollen glands, others Endocrine: denies: excessive hunger, excessive sweating, excessive thirst, excessive urination, flushing, intolerance to cold, intolerance to heat, unexplained weight gain, unexplained weight loss, others Psychiatric: denies: anxiety, bipolar disorder, depression, hopeless, panic disorder, schizophrenia, sleepless, suicidal, others Physical Exam General Appearance: Mild Distress (Patient is histrionic at time of evaluation.), Normal HEENT: Normal ENT Inspection, Pharynx Normal, TMs Normal Neck: Full Range of Motion, Non-Tender, Normal, Normal Inspection Respiratory: Chest Non-Tender, Lungs Clear, No Accessory Muscle Use, No R espiratory Distress, Normal Breath Sounds Cardiovascular: No Edema, No JVD, No Murmur, No Gallop, Normal Peripheral Pulses, Regular Rate/Rhythm Breast Exam: Deferred Gastrointestinal: No Organomegaly, Non Tender, No Pulsatile Mass, Normal Bowel Sounds, Soft Genitalia: Deferred Pelvic: Deferred Rectal: Deferred Extremities: No calf tenderness, Normal capillary refill, Normal inspection, Normal range of motion, Non-tender, No pedal edema Neurologic: Alert, No Motor Deficits, Normal Affect, Normal Mood, No Sensory Deficits Cerebellar Function: Normal Reflexes: Normal Skin: Dry, Normal Color, Warm Lymphatic: No Adenopathy Was a procedure done? Was a procedure done?: No Differential Diagnosis Kidney stone (Female): Other (Back pain, ), N/A X-Ray, Labs, Meds, VS Vital Signs Date Time Temp Pulse Resp B/P (MAP) Pulse Ox O2 Delivery O2 Flow Rate FiO2 09/16/24 22:34 98.6 83 18 125/75 (92) 98 98.6 X-Ray, Labs, Meds, VS Comment Patient refused all laboratories studies and requested only a ultrasound. Ultrasound results were reviewed by me personally. Ultrasound was unremarkable for any active . Patient will be sent home with medication to manage her back pain concerns. Time of 1ST Reevaluation: 23:32 Reevaluation 1ST: Unchanged Consultation: PCP, Psychiatry Patient Education/Counseling: Diagnosis, Treatment Family Education/Counseling: Diagnosis, Treatment Departure 1 Departure Time of Disposition: 23:33 Impression: Primary Impression: Back pain Disposition: HOME / SELF CARE / HOMELESS Condition: Stable Additional Instructions: Advised patient utilize pain medication as needed for symptomatic relief as well as ice therapy. e-Prescriptions Ibuprofen Micronized (Ibuprofen) 800 Mg Tab 800 MG PO Q8HP PRN, #20 TAB Prov: RENNY SIMONS PAC 09/16/24 Discharged With: Self Critical Care Note Critical Care Time?: No Stability Stability form required: No Heart Score Heart Score: Heart Score Response (Comments) Value History N/A 0 EKG N/A 0 Age N/A 0 Risk Factors N/A 0 Troponin N/A 0 Total 0 RENNY SIMONS PAC Sep 16, 2024 23:34
[2024-09-16 23:45] VITALS: BP 125/75; PULSE 83; RESP 18; TEMP 98.6; O2SAT 98
== END 2024-09-17 00:56 | disposition home or self-care (01) ==
LOC: ER 22:23
DX: O26.893 Other specified pregnancy related conditions, third trimester (principal); M54.50 Low back pain, unspecified; Z3A.32 32 weeks gestation of pregnancy; Z88.0 Allergy status to penicillin; Z79.899 Other long term (current) drug therapy
CPT/HCPCS: 76856

== ENCOUNTER 2024-09-17 08:43 | Emergency (ER) | payer MEDICAID ==
[~2024-09-17] VITALS: Ht 165.1 cm; Wt 91.0 kg
[2024-09-17 08:54] VITALS: BP 123/84; PULSE 77; RESP 16; TEMP 98.8; O2SAT 100
== END 2024-09-17 09:06 | disposition left against medical advice (07) ==
LOC: ER 08:43
DX: M54.9 Dorsalgia, unspecified (principal); Z53.21 Procedure and treatment not carried out due to patient leaving prior to being seen by health care provider

== ENCOUNTER 2024-10-03 23:55 | Emergency (ER) | payer MEDICAID ==
[~2024-10-03] VITALS: Ht 165.1 cm; Wt 194.6 kg
[2024-10-04 00:29] VITALS: BP 125/81; PULSE 99; RESP 18; O2SAT 100
--- NOTE | 2024-10-04 01:13 | ED.PDOC ---
History of Present Illness HPI Comments 30 y/o F presents for mental health, today. Patient is erratic and a poor historian. She endorses on being "36x weeks ," currently, and suspects on undergoing contractions and inquires for an ultrasound. Per [facility] medical record, patient had a benign ultrasound on 09/16/24, that showed no signs of . Patient has reports no current psychiatric medication use. Denies any further associated symptoms, such as abdominal pain or vaginal bleeding, auditory or visual hallucinations, or suicidal or homicidal ideations. Chief Complaint: Mental Health Time Seen by MD: 00:40 Primary Care Provider: [facility] Reviewed Notes: Nurses Notes, Medications, Allergies Allergies: Coded Allergies: Amoxicillin (Verified Allergy, Unknown, 05/16/23) Penicillins (Verified Allergy, Unknown, 06/20/23) Home Meds Active Scripts Ibuprofen Micronized (Ibuprofen) 800 Mg Tab, 800 MG PO Q8HP PRN, #20 TAB Prov:RENNY SIMONS PAC 09/16/24 Lidocaine (LIDODERM 5% TOPICAL PATCH) 1 Patch Ph, 1 PATCH TOP DAILY for 30 Days, #30 PATCH 0 Refills Prov:JUDITH FUENTES NP 03/09/24 Meloxicam (Meloxicam) 7.5 Mg Tab, 1 TAB PO DAILYP PRN, #3 TAB 0 Refills Prov:JUDITH FUENTES NP 03/09/24 Ibuprofen (Ibuprofen) 800 Mg Tab, 1 TAB PO TID PRN, #30 TAB 0 Refills Prov:ADAMS GOMEZ 01/28/24 Clindamycin Hcl (Clindamycin Hcl) 300 Mg Cap, 1 CAP PO TID for 7 Days, #21 CAP 0 Refills Prov:ADAMS GOMEZ 01/28/24 Hydroxyzine HCl (Hydroxyzine Hydrochloride) 10 Mg Tab, 10 MG PO TIDP PRN for 10 Days, #30 TAB 0 Refills Prov:JUDITH FUENTES NP 09/30/23 Methylprednisolone (Medrol Dosepak) 4 Mg Dyane, 4 MG PO UD for 5 Days, #21 TAB 0 Refills UAD Prov:JUDITH FUENTES NP 09/30/23 Calamine-Zinc Oxide (Calamine 8-8 %) 1 Katie Katie, 1 APPLIC EX QIDP for 10 Days, #1 BOTTLE 0 Refills Prov:JUDITH FUENTES NP 09/30/23 Meclizine HCl (Meclizine 25) 25 Mg Tab, 1 TAB PO Q8HPRN PRN, #20 TAB as needed for dizziness Prov:DINESH SPRAGUE KILNMAN 09/23/23 Ondansetron Odt 4MG Tab (ZOFRAN PO) 4 Mg Tb, 1 TAB PO Q8HPRN PRN, #10 TAB as needed for nausea vomitingODT TAB-DISSOLVE IN MOUTH, THEN SWALLOW Prov:DINESH SPRAGUE KILNMAN 09/23/23 Ibuprofen Micronized (Ibuprofen) 600 Mg Tab, 1 TAB PO Q6HPRN PRN, #20 TAB as needed for cough Prov:DINESH SPRAGUE KILNMAN 09/23/23 Benzonatate (Benzonatate) 200 Mg Cap, 1 CAP PO TID, #30 CAP as needed for cough Prov:DINESH SPRAGUE KILNMAN 09/23/23 Fluticasone Propionate (Nasal) (Flonase Allergy Relief Ch) 50 Mcg/Act Spr, 1 MCG NA BID, #1 SPRAY Prov:DINESH SPRAGUE KILNMAN 09/23/23 Amoxicillin & Pot Clavulanate (AUGMENTIN TABLET) 875 Mg Tb, 1 TAB PO BID for 10 Days, #20 TAB Prov:DINESH SPRAGUE KILNMAN 09/23/23 Naproxen (NAPROSYN TABLET) 500 Mg Tb, 1 TAB PO BID, #60 TAB 1 Refill Prov:LEX THAKUR SPORTS PSYCHOLOGIST 09/06/23 Nabumetone (Nabumetone) 500 Mg Tab, 1 TAB PO BID PRN, #20 TAB Prov:LIUDMILA CARRIZALES SPORTS PSYCHOLOGIST 09/02/23 Acetaminophen (Acetaminophen) 500 Mg Tab, 500 MG PO Q4HPRN, #30 TAB 0 Refills Prov:ADAMS GOMEZ 08/31/23 Ibuprofen Micronized (Ibuprofen) 600 Mg Tab, 1 TAB PO Q6HPRN PRN, #20 TAB As needed for pain Prov:DINESH SPRAGUE KILNMAN 05/30/23 Clindamycin Hcl (Clindamycin Hcl) 300 Mg Cap, 1 CAP PO QID for 10 Days, #40 CAP Prov:DINESH SPRAGUE KILNMAN 05/30/23 Meclizine Hcl (Meclizine Hcl) 25 Mg Tab, 25 MG PO Q6HP PRN, #20 TAB Prov:JOAQUIM LUU MD 05/16/23 Triamcinolone Acetonide (Triamcinolone Acetonide) 0.025 % Cre, 1 APPLIC TOP BID, #60 GRAMS Prov:EUNICE NAIDU 03/18/23 Hydroxyzine Hcl (Hydroxyzine Hcl) 25 Mg Tab, 1 TAB PO BID for 7 Days, #14 TAB 0 Refills Prov:JUDITH FUENTES NP 02/22/23 Ibuprofen Micronized (Ibuprofen) 800 Mg Tab, 800 MG PO Q6HP PRN, #30 TAB 0 Refills Prov:GINAJUDITH NP 02/22/23 Methylprednisolone (Medrol Dosepak) 4 Mg Dayne, 4 MG PO UD, #21 TAB 0 Refills UAD Prov:GINAJUDITH NP 02/22/23 Nitrofurantoin Monohydrate Mac (Macrobid) 100 Mg Cap, 100 MG PO BID for 7 Days, #14 CAP 0 Refills Prov:GINAJUDITH NP 02/02/23 Information Source: Patient Mode of Arrival: Ambulatory Severity: Moderate Timing: Hours Duration: Since onset Prehospital treatment: None Past Medical History PAST MEDICAL HISTORY: Denies Surgical History: CHILD DAY CARE PROVIDER History: No Pertinent CHILD DAY CARE PROVIDER History Family History Family History: Reviewed,noncontributory to illness, Unknown Social History Smoker: Cigarettes, Less Than 1 Pack/Day Alcohol: Occasionally Drugs: Denies Drug Use Lives In: Home All Other Systems: Reviewed and Negative (Comprehensive systems review obtained and negative except for what is stated in the HPI.) Physical Exam Exam Comments patient refused exam General Appearance: No Apparent Distress, Obese HEENT: NOT DONE Neck: NOT DONE Respiratory: NOT DONE Cardiovascular: NOT DONE Breast Exam: Deferred Gastrointestinal: NOT DONE Genitalia: Deferred Pelvic: Deferred Rectal: Deferred Extremities: NOT DONE Musculoskeletal : Apperance: Normal Neurologic: NOT DONE Cerebellar Function: NOT DONE Reflexes: NOT DONE Skin: NOT DONE Lymphatic: NOT DONE Was a procedure done? Was a procedure done?: No Differential Dx Considerations may include: schizoaffective disorder, bipolar disorder, anxiety, substance abuse, among others X-Ray, Labs, Meds, VS Vital Signs Date Time Temp Pulse Resp B/P (MAP) Pulse Ox O2 Delivery O2 Flow Rate FiO2 4/29/25 00:29 99 18 125/81 (96) 100 Lab Test 10/04/24 00:34 Range/Units Beta HCG, Quantitative 0.8 L 1.5-4.2 mIU/mL X-Ray, Labs, Meds, VS Comment Imaging: X-rays and CT scans were reviewed and interpreted by this provider, imaging shows no fractures and no pathological disease. Pending radiology review. Laboratory: Labs reviewed and interpreted by this provider. No significant abnormalities noted. Patient has prior medical visits reviewed. Med reconciliation performed Vital signs reviewed Time of 1ST Reevaluation: 01:20 Reevaluation 1ST: Unchanged Patient Education/Counseling: Diagnosis, Treatment, Need For Follow Up (Follow up in the emergency department in the next 24-48 hours if symptoms worsen. It was advised to follow up with your primary care doctor in the next 3-4 days for further evaluation.) Family Education/Counseling: No Family Present Departure 1 Departure Time of Disposition: 01:43 Impression: Primary Impression: Delusions Additional Impression: Alteration in thought content as evidenced by delusions Disposition: 01 HOME / SELF CARE / HOMELESS Condition: Fair Discharged With: Self Critical Care Note Critical Care Time?: No Stability Stability form required: No Heart Score Heart Score: Heart Score Response (Comments) Value History N/A 0 EKG N/A 0 Age N/A 0 Risk Factors N/A 0 Troponin N/A 0 Total 0 I personally scribed for LEX THAKUR ([email or web address]) on 10/04/24 at 01:13. Electronically submitted by Luke Magaña ([email or web address]). LEX THAKUR Oct 04, 2024 01:13
== END 2024-10-04 05:59 | disposition home or self-care (01) ==
LOC: ER 23:55
DX: F22 Delusional disorders (principal); F17.210 Nicotine dependence, cigarettes, uncomplicated; R10.2 Pelvic and perineal pain; Z88.0 Allergy status to penicillin; Z98.890 Other specified postprocedural states
CPT/HCPCS: 36415; 84702

== ENCOUNTER 2024-10-04 06:39 | Emergency (ER) | payer MEDICAID ==
[~2024-10-04] VITALS: Ht 165.1 cm; Wt 90.9 kg
[2024-10-04 07:00] VITALS: BP 122/73; PULSE 81; RESP 18; TEMP 98.4; O2SAT 95
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
--- NOTE | 2024-10-04 08:00 | DVH ---
CLINICAL INDICATION: pain/trauma TECHNIQUE: 3 radiographic views of the facial bones were obtained. Comparison: None FINDINGS/IMPRESSION: There is no evidence of acute fracture or dislocation. No obvious facial bone fracture within limitations of radiographs.
== END 2024-10-04 08:19 | disposition home or self-care (01) ==
LOC: ER 06:39
DX: O9A.213 Injury, poisoning and certain other consequences of external causes complicating pregnancy, third trimester (principal); S00.83XA Contusion of other part of head, initial encounter; O99.333 Smoking (tobacco) complicating pregnancy, third trimester; F17.210 Nicotine dependence, cigarettes, uncomplicated; Z3A.36 36 weeks gestation of pregnancy; Z88.0 Allergy status to penicillin; W22.8XXA Striking against or struck by other objects, initial encounter; Y93.89 Activity, other specified; Y92.89 Other specified places as the place of occurrence of the external cause; Y99.8 Other external cause status
CPT/HCPCS: 70140

== ENCOUNTER 2024-10-04 13:52 | Emergency (ER) | payer MEDICAID | END 2024-10-04 14:33 | disposition left against medical advice (07) | LOC: ER 13:52 | DX: S09.93XA Unspecified injury of face, initial encounter (principal); Z53.21 Procedure and treatment not carried out due to patient leaving prior to being seen by health care provider; X58.XXXA Exposure to other specified factors, initial encounter; Y93.89 Activity, other specified; Y92.89 Other specified places as the place of occurrence of the external cause; Y99.8 Other external cause status ==

== ENCOUNTER 2024-10-31 03:47 | Emergency (ER) | payer MEDICAID ==
[~2024-10-31] VITALS: Ht 165.1 cm; Wt 90.9 kg
[2024-10-31 04:05] VITALS: BP 111/64; TEMP 98.2
--- NOTE | 2024-10-31 04:17 | ED.PDOC ---
SOB-HPI HPI Comments PATIENT C/O WHEEZING AND COUGH FOR ONE WEEK. WAS SEEN, PRESCRIBED ANTIBIOTICS AND INHALER. STATES SYMPTOMS HAVE NOT IMPROVED. 02 99% ON ROOM AIR. Time Seen by MD: 04:06 Primary Care Provider: [facility] Reviewed notes: Nurses Notes, Medications, Allergies Information Source: Patient Past Medical History PAST MEDICAL HISTORY: Denies Surgical History: MEMORIAL COUNSELOR History: No Pertinent MEMORIAL COUNSELOR History Family History Family History: Reviewed,noncontributory to illness Social History Smoker: Cigarettes, Less Than 1 Pack/Day Alcohol: Denies ETOH Use Drugs: Denies Drug Use Lives In: Homeless Constitutional: denies: chills, diaphoresis, fatigue, fever, malaise, sweats, weakness, others Respiratory: reports: cough, wheezing; denies: hemoptysis, orthopnea, SOB at rest, shortness of breath, SOB with excertion, stridor, others Cardiovascular: denies: chest pain, dizzy spells, diaphoresis, Dyspnea on exertion, edema, irregular heart beat, left arm pain, lightheadedness, palpitations, PND, syncope, others Gastrointestinal: denies: abdomen distended, abdominal pain, blood streaked bowels, constipated, diarrhea, dysphagia, difficulty swallowing, hematemesis, melena, nausea, poor appetite, poor fluid intake, rectal bleeding, rectal pain, vomiting, others Genitourinary: denies: abnormal vagina bleeding, burning, dyspareunia, dysuria, flank pain, frequency, hematuria, incontinence, pain, , vagina discharge, urgency, others Neurological: denies: dizziness, fainting, headache, left sided numbness, left sided weakness, numbness, paresthesia, pre-existing deficit, right sided numbness, right sided weakness, seizure, speech problems, tingling, tremors, weakness, others Musculoskeletal: denies: back pain, gout, joint pain, joint swelling, muscle pain, muscle stiffness, neck pain, others Integumetry: denies: bruises, change in color, change in hair/nails, dryness, laceration, lesions, lumps, rash, wounds, others Allergic/Immunocompromised: denies: Difficulty Healing, Frequent Infections, Hives, Itching, others Hematologic/Lymphatic: denies: anemia, blood clots, easy bleeding, easy bruising, swollen glands, others Endocrine: denies: excessive hunger, excessive sweating, excessive thirst, excessive urination, flushing, intolerance to cold, intolerance to heat, unexplained weight gain, unexplained weight loss, others Psychiatric: denies: anxiety, bipolar disorder, depression, hopeless, panic disorder, schizophrenia, sleepless, suicidal, others Physical Exam General Appearance: No Apparent Distress, Normal HEENT: Normal ENT Inspection, Pharynx Normal, TMs Normal Neck: Full Range of Motion, Normal Respiratory: Chest Non-Tender, No Accessory Muscle Use, No Respiratory Distress, Rhonchi Cardiovascular: No Edema, No JVD, No Murmur, No Gallop, Normal Peripheral Pulses, Regular Rate/Rhythm Breast Exam: Deferred Gastrointestinal: No Organomegaly, Non Tender, No Pulsatile Mass, Normal Bowel Sounds, Soft Genitalia: Deferred Pelvic: Deferred Rectal: Deferred Extremities: Normal capillary refill, Normal inspection, Normal range of motion, Non-tender, No pedal edema Musculoskeletal : Apperance: Normal Neurologic: Alert, type mapper II-XII nml as Tested, No Motor Deficits, Normal Affect, Normal Mood, No Sensory Deficits Cerebellar Function: Normal Reflexes: Normal Skin: Dry, Normal Color, Warm Lymphatic: No Adenopathy Was a procedure done? Was a procedure done?: No Differential Dx Differential Diagnosis: Asthma, Bronchitis, Pneumothorax X-Ray, Labs, Meds, VS Vital Signs Date Time Temp Pulse Resp B/P (MAP) Pulse Ox O2 Delivery O2 Flow Rate FiO2 10/31/24 04:05 98.2 98 18 111/64 (80) 98 98.2 10/31/24 04:05 18 98 Room Air* 0 21 X-Ray, Labs, Meds, VS Comment LIKELY BRONCHITIS. SCRIPT TRIAL OF MEDROL DOSEPAK AND PROMETHAZINE-DM FOR THE COUGH. ADVISED TO REST INCREASE P.O. FLUIDS WITH ELECTROLYTES ADVISED TO TAKE MEDICATIONS PRESCRIBED SIDE EFFECTS DISCUSSED. ADVISED TO FOLLOW UP WITH HER PCP IN 2-3 DAYS NECESSARY. ER RETURN PRECAUTIONS GIVEN PATIENT INDICATED UNDERSTANDING AGREES WITH DISCHARGE PLAN OF CARE. Time of 1ST Reevaluation: 04:16 Reevaluation 1ST: Unchanged Time of 2ND Reevaluation: 04:56 Reevaluation 2ND: Improved Patient Education/Counseling: Diagnosis, Treatment, Prognosis, Need For Follow Up Family Education/Counseling: No Family Present Departure 1 Departure Time of Disposition: 04:55 Impression: Primary Impression: Bronchitis Disposition: 01 HOME / SELF CARE / HOMELESS Condition: Stable e-Prescriptions Promethazine-Dm (Promethazine Dm 6.25-15 mg/5Ml) 1 Faviola Faviola 5 ML PO BID PRN for 6 Days, #90 ML Prov: MARISOL VAZQUEZ 10/31/24 Methylprednisolone (Medrol Dosepak) 4 Mg Dayne 4 MG PO UD for 6 Days, #21 TAB UAD Prov: MARISOL VAZQUEZ 10/31/24 Discharged With: Self Critical Care Note Critical Care Time?: No Stability Stability form required: No Heart Score Heart Score: Heart Score Response (Comments) Value History N/A 0 EKG N/A 0 Age <45 0 Risk Factors N/A 0 Troponin N/A 0 Total 0 MARISOL VAZQUEZ October 31, 2024 04:17
[2024-10-31] MEDS ORDERED: PROM1SOL4 PO (04:56)
[2024-10-31] MEDS ORDERED: METH4PAK PO (04:56)
[2024-10-31 05:37] VITALS: PULSE 92; RESP 17; O2SAT 98
== END 2024-10-31 05:42 | disposition home or self-care (01) ==
LOC: ER 03:47
DX: J40 Bronchitis, not specified as acute or chronic (principal); F17.210 Nicotine dependence, cigarettes, uncomplicated; Z98.890 Other specified postprocedural states; Z59.00 Homelessness unspecified